=== PATIENT | female | born 1955 | race Caucasian/White ===

== ENCOUNTER → 2016-09-30 | Outpatient (CLI) | payer BC ==
--- NOTE | 2016-09-30 11:34 | KCIC ---
PROCEDURE CT scan of the chest without contrast 09/30/2016 HISTORY Follow-up pulmonary nodule TECHNIQUE Unenhanced, contiguous, 5 millimeter axial sections were obtained through the chest and upper abdomen. One or more of the following individualized dose reduction techniques were utilized for this study: 1. Automated exposure control. 2. Adjustment of the mA and/or kV according to patient size. 3. Use of iterative reconstruction technique. FINDINGS Comparison studies are dated 01/23/2015 and 08/06/2015. A 4-5 millimeter irregular nodular opacity is seen involving the right middle lobe adjacent to the minor fissure. It is unchanged from the patient's previous examination. It is consistent with an area of scarring. No further imaging follow-up is recommended. Areas of scarring are seen involving the lingula and right middle lobe, unchanged. Mild emphysematous changes are seen involving both lungs. No area of consolidation is seen. New pulmonary nodule is noted. No pneumothorax or pleural effusion is seen. Mild atherosclerotic calcification of the thoracic aorta is noted. The thoracic aorta tapers normally. The heart is normal in size. No hilar, mediastinal or axillary lymphadenopathy is seen. Images through the upper abdomen are unchanged. IMPRESSION Stable CT appearance of the 4-5 millimeter nodular opacity involving the right middle lobe. This is consistent with an area of scarring. No further imaging follow-up is recommended. Electronically signed by: Lee Villarreal MD (Sep 30, 2016 11:30:45)
== END | disposition home or self-care (01) ==
LOC: KCIC CT 08:43
PROVIDERS: ATTEND Internal Medicine Pulmonary Disease
DX: R91.1 Solitary pulmonary nodule (principal)
CPT/HCPCS: 71250